=== PATIENT | female | born 1940 | race Caucasian/White ===

== ENCOUNTER 2016-10-30 15:52 | Emergency (ER) | payer OTHER ==
[~2016-10-30] VITALS: Ht 149.9 cm; Wt 69.0 kg
[~2016-10-30 15:52] MED LIST: MECL25 PO; METH750T2 PO; TYLE3 PO
[2016-10-30 15:57] VITALS: BP 173/74; PULSE 92; RESP 18; TEMP 98.1; O2SAT 97
[2016-10-30 16:19] LABS: GLUCOSE,URINE NEG (NEG); KETONE, URINE NEG (NEG); NITRITE,URINE NEG (NEG); PH, URINE 5.5 (5.0-8.5)
[2016-10-30] MEDS ORDERED: SODIUM CHLOR 0.9% 1000 ML INJ 1,000 ML IV ONE (16:30)
[2016-10-30] MEDS ORDERED: ACETAMINOPHEN 325 MG TAB PO ONE (16:30)
--- NOTE | 2016-10-30 16:35 | PD ---
HPI Chief Complaint: Complaint Time Seen by Provider: 16:17 Travel History International Travel<30 days: No Contact w/Intl Traveler<30days: No Traveled to known affect area: No History of Present Illness HPI Patient is a 76-year-old female who comes in complaining of possible urinary tract infection. She says that 2 weeks ago she was diagnosed with a UTI and was treated with doxycycline. She says she did feel better, and the past few days started noticing some burning in her urination again. She says she went to see her doctor today because she felt like she is unable to urinate and had some back pain. Her doctor called in a prescription for azithromycin for her, and told her to have an ultrasound done. She was also told if she was not feeling well, she should come to the emergency department. She says she cares for her daughter who is terminal, and she has just been feeling really weak and lying she is unable to care for her tonight. She says she has been feeling chills and pain in her abdomen. She has not started the azithromycin yet. 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) Gastrointestinal Disorders: Yes Genitourinary: Yes Musculoskeletal: Yes Neurologic: No Reproductive: No Respiratory: No Past Surgical History Abdominal Surgery: Yes (GALL BLADDER REMOVED) Cholecystectomy: Yes Gynecologic Surgery: Yes (HISTERECTOMY) Hysterectomy: Yes Tonsillectomy: Yes Other Surgery: Yes Social History Alcohol Use: No Tobacco Use: No Substance Use: No Allergies-Medications (Allergen,Severity, Reaction): Coded Allergies: ibuprofen (Unverified Allergy, Severe, CHEST HEAVINESS, 10/30/16) Reported Meds & Prescriptions Reported Meds & Active Scripts Active No Active Prescriptions or Reported Medications Review of Systems Except as stated in HPI: all other systems reviewed are Neg General / Constitutional: Positive: Chills, No: Fever HENT: No: Headaches, Lightheadedness Cardiovascular: No: Chest Pain or Discomfort Respiratory: No: Cough, Shortness of Breath Gastrointestinal: Positive: Nausea, Abdominal Pain, No: Vomiting Genitourinary: Positive: Dysuria, Flank Pain Musculoskeletal: No: Edema, Pain Skin: No Rash, No Change in Pigmentation Neurologic: Positive: Weakness, No: Dizziness, Syncope Physical Exam Narrative GENERAL: Awake and alert, in no acute distress. SKIN: Focused skin assessment warm/dry. HEAD: Atraumatic. Normocephalic. EYES: Pupils equal and round. No scleral icterus. ENT: Mucous membranes pink and moist. NECK: Trachea midline. No JVD. CARDIOVASCULAR: Regular rate and rhythm. No murmur appreciated. RESPIRATORY: No accessory muscle use. Clear to auscultation. Breath sounds equal bilaterally. GASTROINTESTINAL: Abdomen soft, nondistended. Tender to palpation of the lower abdomen. No rebound or guarding. MUSCULOSKELETAL: No obvious deformities. No clubbing. No cyanosis. No edema. Tender to palpation across the lower back. No spinal tenderness. NEUROLOGICAL: Awake and alert. No obvious cranial nerve deficits. Motor grossly within normal limits. Normal speech. PSYCHIATRIC: Appropriate mood and affect; insight and judgment normal. Data Data Last Documented VS Vital Signs Date Time Temp Pulse Resp B/P (MAP) Pulse Ox O2 Delivery O2 Flow Rate FiO2 10/30/16 18:24 98.0 10/30/16 15:57 92 18 97 Room Air Orders Orders Urinalysis - C+S If Indicated (10/30/16 15:59) Iv Access Insert/Monitor (10/30/16 16:27) Complete Blood Count With Diff (10/30/16 16:27) Comprehensive Metabolic Panel (10/30/16 16:27) Sodium Chlor 0.9% 1000 Ml Inj (Ns 1000 M (10/30/16 16:30) Acetaminophen (Tylenol) (10/30/16 16:30) Ct Abd/Pel W Iv Contrast(Rout) (10/30/16 ) Ondansetron Inj (Zofran Inj) (10/30/16 16:45) Iohexol 350 Inj (Omnipaque 350 Inj) (10/30/16 17:34) Influenzae A/B Antigen (10/30/16 18:18) Labs Laboratory Tests Test 10/30/16 16:05 10/30/16 16:43 Urine Collection Type CLEAN CATCH Urine Color STRAW Urine Turbidity CLEAR Urine pH 5.5 Urine Specific [place] 1.003 Urine Protein NEG mg/dL Urine Glucose (UA) NEG mg/dL Urine Ketones NEG mg/dL Urine Occult Blood TRACE Urine Nitrite NEG Urine Bilirubin NEG Urine Leukocyte Esterase NEG Urine RBC 0-3 /hpf Urine Squamous Epithelial Cells 0-5 /hpf Microscopic Urinalysis Comment CULT NOT INDICATED Urine Collection Time 16:05 White Blood Count 7.9 TH/MM3 Red Blood Count 4.95 MIL/MM3 Hemoglobin 12.5 GM/DL Hematocrit 38.1 % Mean Corpuscular Volume 77.0 FL Mean Corpuscular Hemoglobin 25.3 PG Mean Corpuscular Hemoglobin Concent 32.9 % Red Cell Distribution Width 14.0 % Platelet Count 233 TH/MM3 Mean Platelet Volume 8.5 FL Neutrophils (%) (Auto) 60.6 % Lymphocytes (%) (Auto) 30.5 % Monocytes (%) (Auto) 7.4 % Eosinophils (%) (Auto) 1.2 % Basophils (%) (Auto) 0.3 % Neutrophils # (Auto) 4.8 TH/MM3 Lymphocytes # (Auto) 2.4 TH/MM3 Monocytes # (Auto) 0.6 TH/MM3 Eosinophils # (Auto) 0.1 TH/MM3 Basophils # (Auto) 0.0 TH/MM3 CBC Comment DIFF FINAL Differential Comment Blood Urea Nitrogen 12 MG/DL Creatinine 1.00 MG/DL Random Glucose 119 MG/DL Total Protein 6.8 GM/DL Albumin 3.4 GM/DL Calcium Level 8.9 MG/DL Alkaline Phosphatase 75 U/L Aspartate Amino Transf (AST/SGOT) 15 U/L Alanine Aminotransferase (ALT/SGPT) 26 U/L Total Bilirubin 0.4 MG/DL Sodium Level 141 MEQ/L Potassium Level 3.6 MEQ/L Chloride Level 104 MEQ/L Carbon Dioxide Level 29.6 MEQ/L Anion Gap 7 MEQ/L Estimat Glomerular Filtration Rate 54 ML/MIN MDM Medical Decision Making Medical Screen Exam Complete: Yes Emergency Medical Condition: Yes Medical Record Reviewed: Yes Differential Diagnosis Urinary tract infection versus electrolyte abnormality versus dehydration versus renal stone versus pyelonephritis Narrative Course Patient is a 76-year-old female comes in complaining of chills and weakness. Exam shows tenderness across the lower abdomen. IV established, labs sent. Labs show no acute abnormalities. White blood cell count is within normal limits, creatinine is 1. Urinalysis is negative for UTI. CT abdomen and pelvis shows no acute abnormalities. Influenza test is negative. Patient given IV fluids and Tylenol and she reports feeling better. Patient admits she has run down from having to take care of her daughter. She says she is not eating or drinking very much. She is advised that she needs to take care of herself to be of any use to her daughter. Advised to increase her fluid intake. Advised follow-up with her doctor. Advised to return to the ED as needed for any worsening symptoms. Patient and her family are comfortable with discharge at this time. Diagnosis Primary Impression: Weakness Patient Instructions: General Instructions, Weakness (ED) Additional Instructions: Increase her fluid intake. Follow-up with a primary care doctor. Return to the emergency department as needed for any worsening symptoms. Scripts No Active Prescriptions or Reported Meds Disposition: 01 DISCHARGE HOME Condition: Stable Faith Argueta MD Oct 30, 2016 16:35
[2016-10-30] MEDS ORDERED: ONDANSETRON HCL 4 MG/2 ML VIAL IV PUSH ONE (16:45)
[2016-10-30 16:49] LABS: AUTOMATED NEUTROPHIL # 4.8 TH/MM3 (1.8-7.7); BASOPHIL % 0.3 % (0.0-2.0); EOSINOPHIL # 0.1 TH/MM3 (0-0.4); EOSINOPHIL % 1.2 % (0.0-4.0); HEMATOCRIT 38.1 % (35.0-46.0); LYMPH % 30.5 % (9.0-44.0); LYMPHOCYTE # 2.4 TH/MM3 (1.0-4.8); MEAN CORPUSCULAR HEMOGLOBIN 25.3 PG (27.0-34.0); MEAN CORPUSCULAR HGB CONC 32.9 % (32.0-36.0); MONO % 7.4 % (0.0-8.0); NEUT % 60.6 % (16.0-70.0); PLATELET COUNT 233 TH/MM3 (150-450); RED BLOOD COUNT 4.95 MIL/MM3 (4.00-5.30); WHITE BLOOD COUNT 7.9 TH/MM3 (4.0-11.0)
[2016-10-30 17:01] LABS: CHLORIDE 104 MEQ/L (98-107); POTASSIUM 3.6 MEQ/L (3.5-5.1); SODIUM (NA) 141 MEQ/L (136-145)
[2016-10-30 17:02] LABS: HEMO FLAGS DIFF FINAL
[2016-10-30 17:05] LABS: ANION GAP 7 MEQ/L (5-15); BICARBONATE 29.6 MEQ/L (21.0-32.0); BLOOD UREA NITROGEN 12 MG/DL (7-18)
[2016-10-30 17:08] LABS: ALT (GPT) 26 U/L (10-53); AST (GOT) 15 U/L (15-37); GLOMERULAR FILTRATION RATE 54 ML/MIN (>89)
[2016-10-30 17:10] LABS: TOTAL BILIRUBIN ADULT 0.4 MG/DL (0.2-1.0)
[2016-10-30 17:11] LABS: ALKALINE PHOSPHATASE 75 U/L (45-117)
[2016-10-30 17:21] LABS: BLOOD, URINE TRACE (NEG); COMMENT (UR) CULT NOT INDICATED; CULTURE IF INDICATED CULT NOT INDICATED; METHOD OF COLLECTION CLEAN CATCH; RBC, URINE 0-3 /hpf (0-3); SQUAMOUS EPITHELIAL CELL URINE 0-5 /hpf (0-5); URINE COLOR STRAW (YELLW/STRAW)
[2016-10-30] MEDS ORDERED: IOHEXOL 350 MG/ML 10 ML VIAL (for RAD DIAG) IVCONTRAST ONE (17:34)
--- NOTE | 2016-10-30 18:07 | RADRPT ---
EXAM DATE/TIME: 10/30/2016 17:22 [facility] COMPARISON: No previous studies available for comparison. INDICATIONS : Flank abdominal pain. IV CONTRAST: 80 cc Omnipaque 350 (iohexol) IV ORAL CONTRAST: No oral contrast ingested. RADIATION DOSE: 14.67 CTDIvol (mGy) MEDICAL HISTORY : Cardiovascular disease. SURGICAL HISTORY : Hysterectomy. Cholecystectomy. ENCOUNTER: Initial ACUITY: 1 day PAIN SCALE: 5/10 LOCATION: flank abdomen TECHNIQUE: Volumetric scanning of the abdomen and pelvis was performed. Using automated exposure control and ad justment of the mA and/or kV according to patient size, radiation dose was kept as low as reasonably achievable to obtain optimal diagnostic quality images. DICOM format image data is available electro nically for review and comparison. FINDINGS: LOWER LUNGS: The visualized lower lungs are clear. LIVER: There is an 11 mm cyst within the right lobe of liver. There is no dilation of the biliary tree. Sta tus post cholecystectomy. No calcified gallstones. SPLEEN: Normal size without lesion. PANCREAS: Within normal limits. KIDNEYS: Normal in size and shape. There is no mass, stone or hydronephrosis. ADRENAL GLANDS: Within normal limits. VASCULAR: There is no aortic aneurysm. BOWEL/MESENTERY: The stomach, small bowel, and colon demonstrate no acute abnormality. There is no free intraperitone al air or fluid. ABDOMINAL WALL: Within normal limits. RETROPERITONEUM: There is no lymphadenopathy. BLADDER: No wall thickening or mass. REPRODUCTIVE: Within normal limits. INGUINAL: There is no lymphadenopathy or hernia. MUSCULOSKELETAL: Degenerative changes and scoliosis of the thoracolumbar spine are noted. Degenerative changes are osm olar involving the hips bilaterally. CONCLUSION: 1. No acute obstructive uropathy. 2. 11 mm right hepatic lobe cyst. 3. Degenerative changes and scoliosis of the thoraco-lumbar spine. 4. Degenerative changes involving hip joints bilaterally. Stephen Salas MD on October 30, 2016 at 18:01 Board Certified Radiologist. This report was verified electronically.
[2016-10-30 18:24] VITALS: TEMP 98
[2016-10-30 19:04] VITALS: BP 185/80; PULSE 96; RESP 16; O2SAT 98
== END 2016-10-30 19:22 | disposition home or self-care (01) ==
LOC: PHED 15:52
DX: R53.1 Weakness (principal)
CPT/HCPCS: 74177; 80053; 81001; 85025; 87804; 96360; 96361; 99285; J7030; Q9967

== ENCOUNTER 2016-11-05 11:40 | Observation (INO) | payer OTHER ==
[~2016-11-05] VITALS: Ht 165.1 cm; Wt 80.0 kg
[2016-11-05] VITALS (7 sets, daily range): BP systolic 139–190; BP diastolic 74–89; PULSE 58–74; RESP 16–22; TEMP 97.7–97.9; O2SAT 97–99
[2016-11-05] MEDS ORDERED: TIMO0.5S30 EACH EYE (11:53)
[2016-11-05] MEDS ORDERED: ZOFR4TAB PO (11:53)
[2016-11-05] MEDS ORDERED: CIPR-9 PO (11:53)
[2016-11-05] MEDS: NITROGLYCERIN 0.4 MG SL 25 TABS/BTL SL SCH ×3 (12:11→12:25)
[2016-11-05] MEDS ORDERED: SODIUM CHLORIDE 0.9% FLUSH 10 ML FLUSH IVF PRN (12:15)
[2016-11-05] MEDS ORDERED: ONDANSETRON HCL 4 MG/2 ML VIAL IV PUSH ONE (12:15)
[2016-11-05] MEDS ORDERED: MORPHINE SULFATE 4 MG/ML INJ IV PUSH ONE (12:15)
--- NOTE | 2016-11-05 12:49 | PD ---
HPI Chief Complaint: Chest Pain Time Seen by Provider: 12:01 Travel History International Travel<30 days: No Contact w/Intl Traveler<30days: No Traveled to known affect area: No History of Present Illness HPI 76 yo F c/o L CP for approx 1-2 days, onset at rest, +radiation to L arm, + dyspnea, no cough/fever. severity 5-6/10, better with nitro. no pleuritic CP. no n/v/diaphoresis. + family hx CAD. no personal hx CAD. + personal stress related to care of daughter lately. + Palpitations for past 1-2 days. 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) Gastrointestinal Disorders: Yes Genitourinary: Yes Hypertension: Yes Musculoskeletal: Yes Neurologic: No Reproductive: No Respiratory: No Past Surgical History Abdominal Surgery: Yes (GALL BLADDER REMOVED) Cholecystectomy: Yes Gynecologic Surgery: Yes (HYSTERECTOMY) Hysterectomy: Yes Tonsillectomy: Yes Other Surgery: Yes Social History Alcohol Use: No Tobacco Use: No Substance Use: No Allergies-Medications (Allergen,Severity, Reaction): Coded Allergies: ibuprofen (Unverified Allergy, Severe, CHEST HEAVINESS, 11/05/16) Reported Meds & Prescriptions Reported Meds & Active Scripts Active Reported Timolol Opth Drops 0.5 % Soln 1 Drop EACH EYE BID Review of Systems Except as stated in HPI: all other systems reviewed are Neg General / Constitutional: No: Fever Respiratory: Positive: Cough Physical Exam Narrative GENERAL: 76 yo F, WNWD, mild distress 2/2 pain/dyspnea SKIN: Warm and dry. HEAD: Atraumatic. Normocephalic. EYES: Pupils equal and round. No scleral icterus. No injection or drainage. ENT: No nasal bleeding or discharge. Mucous membranes pink and moist. NECK: Trachea midline. No JVD. CARDIOVASCULAR: Regular rate and rhythm. RESPIRATORY: Lungs clear. No tachypnea. No dyspnea. GASTROINTESTINAL: Abdomen soft, non-tender, nondistended. Hepatic and splenic margins not palpable. MUSCULOSKELETAL: Extremities without clubbing, cyanosis, or edema. No obvious deformities. NEUROLOGICAL: Awake and alert. No obvious cranial nerve deficits. Motor grossly within normal limits. Five out of 5 muscle strength in the arms and legs. Normal speech. PSYCHIATRIC: Appropriate mood and affect; insight and judgment normal. Data Data Last Documented VS Vital Signs Date Time Temp Pulse Resp B/P (MAP) Pulse Ox O2 Delivery O2 Flow Rate FiO2 11/05/16 12:04 18 99 Nasal Cannula 2.00 11/05/16 11:53 97.8 74 139/89 (106) VS reviewed Orders Orders Electrocardiogram (11/05/16 12:01) Basic Metabolic Panel (Bmp) (11/05/16 12:01) Ckmb (Isoenzyme) Profile (11/05/16 12:01) Complete Blood Count With Diff (11/05/16 12:01) Magnesium (Mg) (11/05/16 12:01) Prothrombin Time / Inr (Pt) (11/05/16 12:01) Act Partial Throm Time (Ptt) (11/05/16 12:01) Troponin I (11/05/16 12:01) Chest, Single Ap (11/05/16 12:01) Ecg Monitoring (11/05/16 12:01) Bilateral Bp Monitoring (11/05/16 12:01) Iv Access Insert/Monitor (11/05/16 12:01) Oximetry (11/05/16 12:01) Oxygen Administration (11/05/16 12:01) Morphine Inj (Morphine Inj) (11/05/16 12:15) Sodium Chloride 0.9% Flush (Ns Flush) (11/05/16 12:15) Nitroglycerin Sl (Nitrostat Sl) (11/05/16 12:15) Ondansetron Inj (Zofran Inj) (11/05/16 12:15) Place In Observation (11/05/16 13:35) Activity Bed Rest With Brp (11/05/16 13:35) Vital Signs (Adult) Q4H (11/05/16 13:35) Cardiac Rhythm .As Directed (11/05/16 13:35) Notify Dr: Other .PRN (11/05/16 13:35) Notify Parameters (11/05/16 13:35) Resp Oxygen Nasal Cannula (11/05/16 ) Ckmb (Isoenzyme) Profile (11/05/16 13:35) Ckmb (Isoenzyme) Profile (11/05/16 16:35) Troponin I (11/05/16 13:35) Troponin I (11/05/16 16:35) Electrocardiogram (11/05/16 16:35) ^ Obtain (11/05/16 13:35) Sodium Chloride 0.9% Flush (Ns Flush) (11/05/16 13:45) Sodium Chloride 0.9% Flush (Ns Flush) (11/05/16 21:00) Workers' Compensation Claims Supervisor / Telemetry [id number] (11/05/16 13:35) Admit Order (Ed Use Only) (11/05/16 13:36) Labs Laboratory Tests Test 11/05/16 12:15 White Blood Count 7.0 TH/MM3 Red Blood Count 4.99 MIL/MM3 Hemoglobin 12.9 GM/DL Hematocrit 39.0 % Mean Corpuscular Volume 78.1 FL Mean Corpuscular Hemoglobin 25.9 PG Mean Corpuscular Hemoglobin Concent 33.2 % Red Cell Distribution Width 14.9 % Platelet Count 298 TH/MM3 Mean Platelet Volume 9.3 FL Neutrophils (%) (Auto) 60.3 % Lymphocytes (%) (Auto) 32.0 % Monocytes (%) (Auto) 6.1 % Eosinophils (%) (Auto) 1.0 % Basophils (%) (Auto) 0.6 % Neutrophils # (Auto) 4.2 TH/MM3 Lymphocytes # (Auto) 2.2 TH/MM3 Monocytes # (Auto) 0.4 TH/MM3 Eosinophils # (Auto) 0.1 TH/MM3 Basophils # (Auto) 0.0 TH/MM3 CBC Comment DIFF FINAL Differential Comment Prothrombin Time 10.2 SEC Prothromb Time International Ratio 0.9 RATIO Activated Partial Thromboplast Time 24.8 SEC Blood Urea Nitrogen 10 MG/DL Creatinine 0.85 MG/DL Random Glucose 96 MG/DL Calcium Level 8.6 MG/DL Magnesium Level 2.5 MG/DL Sodium Level 141 MEQ/L Potassium Level 3.9 MEQ/L Chloride Level 110 MEQ/L Carbon Dioxide Level 24.6 MEQ/L Anion Gap 6 MEQ/L Estimat Glomerular Filtration Rate 65 ML/MIN Total Creatine Kinase 82 U/L Troponin I LESS THAN 0.02 NG/ML MDM Medical Decision Making Medical Screen Exam Complete: Yes Emergency Medical Condition: Yes Medical Record Reviewed: Yes Differential Diagnosis NSTEMI, unstable angina, coronary vasospasm, PE, PTX, aortic dissection, pericarditis, myocarditis, endocarditis, PNA, esophageal disease, aneurysm, musculoskeletal etiologies, anxiety, cocaine/sympathomimetic abuse Narrative Course EKG shows sinus rhythm with a rate of 66 normal axis intervals no ischemic injury pattern CBC & BMP Diagram 11/05/16 12:15 Calcium Level 8.6, Magnesium Level 2.5 Tn < 0.2 DIRECTOR PHYSICAL THERAPY evaluation considered next most reasonable step, pt agreeable with plan Diagnosis Primary Impression: Chest pain Admitting Information Admitting Physician Requests: Observation Ezio Rosas MD Nov 05, 2016 12:49
[2016-11-05 12:50] LABS: AUTOMATED NEUTROPHIL # 4.2 TH/MM3 (1.8-7.7); BASOPHIL % 0.6 % (0.0-2.0); EOSINOPHIL # 0.1 TH/MM3 (0-0.4); HEMO FLAGS DIFF FINAL; LYMPHOCYTE # 2.2 TH/MM3 (1.0-4.8); MEAN CELL VOLUME 78.1 FL (80.0-100.0); MEAN CORPUSCULAR HEMOGLOBIN 25.9 PG (27.0-34.0); MEAN CORPUSCULAR HGB CONC 33.2 % (32.0-36.0); MONO % 6.1 % (0.0-8.0); NEUT % 60.3 % (16.0-70.0); PLATELET COUNT 298 TH/MM3 (150-450); RED BLOOD COUNT 4.99 MIL/MM3 (4.00-5.30); RED CELL DISTRIBUTION WIDTH 14.9 % (11.6-17.2)
[2016-11-05 12:52] LABS: APTT (PATIENT) 24.8 SEC (24.3-30.1); INTERNATIONAL NORMALIZED RATIO 0.9 RATIO; PROTHROMBIN TIME - PATIENT 10.2 SEC (9.8-11.6)
--- NOTE | 2016-11-05 13:05 | RADRPT ---
EXAM DATE/TIME: 11/05/2016 12:58 [facility] COMPARISON: No previous studies available for comparison. INDICATIONS : Chest pain. Patient also complains of left arm pain. MEDICAL HISTORY : None. SURGICAL HISTORY : None. ENCOUNTER: Initial ACUITY: 2 days PAIN SCORE: 3/10 LOCATION: Bilateral chest and left arm. FINDINGS: A single view of the chest demonstrates the lungs to be symmetrically aerated without evidence of mas s, infiltrate or effusion. The cardiomediastinal contours are unremarkable. Osseous structures are intact. CONCLUSION: No acute disease. Pato Babin MD on November 05, 2016 at 13:03 Board Certified Radiologist. This report was verified electronically.
[2016-11-05 13:28] LABS: ANION GAP 6 MEQ/L (5-15); BICARBONATE 24.6 MEQ/L (21.0-32.0); BLOOD UREA NITROGEN 10 MG/DL (7-18); CHLORIDE 110 MEQ/L (98-107); CREATINE KINASE 82 U/L (26-192); GLOMERULAR FILTRATION RATE 65 ML/MIN (>89); MAGNESIUM 2.5 MG/DL (1.5-2.5); POTASSIUM 3.9 MEQ/L (3.5-5.1); SODIUM (NA) 141 MEQ/L (136-145)
[2016-11-05] MEDS ORDERED: SODIUM CHLORIDE 0.9% FLUSH 10 ML FLUSH IV FLUSH PRN (13:45)
[2016-11-05] MEDS ORDERED: cloNIDine HCL 0.1 MG TAB PO PRN (14:45)
[2016-11-05] MEDS ORDERED: RESP: ALBUTEROL 2.5 MG/IPRATROPIUM 0.5 MG NEB (PRN) INH (14:45)
[2016-11-05] MEDS ORDERED: ACETAMINOPHEN/HYDROcodone 325 MG/7.5 MG TAB PO PRN (14:45)
[2016-11-05] MEDS ORDERED: ACETAMINOPHEN 500 MG CPLT PO PRN (14:45)
[2016-11-05] MEDS ORDERED: SODIUM CHLORIDE 0.9% FLUSH 5 ML FLUSH IVF PRN (14:45)
[2016-11-05] MEDS ORDERED: ONDANSETRON HCL 4 MG/2 ML VIAL IV PRN (14:45)
[2016-11-05] MEDS ORDERED: ALPRAZolam 0.25 MG TAB PO PRN (14:45)
--- NOTE | 2016-11-05 15:13 | HHI.HP ---
HPI Primary Care Physician Hira Justin MD Chief Complaint CHEST PAIN History of Present Illness This is a 76-year-old female that presents to ED via [facility] from her PCP office to evaluate chest discomfort. Patient states that all last night she had the sensation of heart palpitations. She describes it as a flipping sensation but does not recall feeling his heart was racing. Then this morning while she is driving to her PCPs office her left arm began to ache. Soon later she developed a pressure in the center of her chest that rate up into her neck. That discomfort will last 2-3 minutes but continue to recur on the way to her PCP office. She became short of breath at the PCP office and EVAC was called. The discomfort is no longer present. She did feel little nauseous but no emesis. No diaphoresis. States she has been under a lot of stress. She is caring for her daughter who she states is in hospice care. Denies history of CAD. States she has not had a stress test in 30 years. Review of Systems General: Patient denies fevers, chills recent, and recent travel HEENT: Patient denies headache, sore throat, difficulty swallowing. Cardiovascular: Has the chest discomfort as mentioned above. Complains of palpitations. Denies sensation of heart beating rapidly. No syncope. Denies diaphoresis. Respiratory: She was short of breath. Denies inspirational chest discomfort. Denies coughing wheezing or hemoptysis. GI: She was nauseous but denies emesis. Patient denies diarrhea, abdominal pain , bloody stools. Musculoskeletal: Patient denies joint pain or edema. Denies calf pain or edema. Neurovascular: Patient denies numbness, tingling, weakness in extremities. Denies headache. Endocrine: Denies polyuria and polydipsia. Hematologic: Denies easy bruising. Skin: Denies rash or itching. Past Family Social History Allergies: Coded Allergies: ibuprofen (Unverified Allergy, Severe, CHEST HEAVINESS, 11/05/16) Past Medical History Hyperlipidemia but states she has not taken medication in years. Denies diabetes, CAD, and hypertension. Past Surgical History Cholecystectomy, hysterectomy, and tonsillectomy. Reported Medications Reported Meds & Active Scripts Active Reported Timolol Opth Drops 0.5 % Soln 1 Drop EACH EYE BID Active Ordered Medications Current Medications Medications (Trade) Dose Ordered Sig/Dm Route Start Time Stop Time Status Last Admin (NS Flush) 2 ml UNSCH PRN IVF 11/05/16 12:15 11/05/16 12:12 (NS Flush) 2 ml UNSCH PRN IV FLUSH 11/05/16 13:45 (NS Flush) 2 ml BID IV FLUSH 11/05/16 21:00 (NS Flush) 2 ml UNSCH PRN IVF 11/05/16 14:45 UNV (NS Flush) 2 ml BID IVF 11/05/16 21:00 UNV (Tylenol) 500 mg Q4H PRN PO 11/05/16 14:45 UNV (Vicco 7.5-325 Mg) 1 tab Q4H PRN PO 11/05/16 14:45 UNV (Zofran Inj) 4 mg Q6H PRN IV 11/05/16 14:45 UNV (Protonix) 40 mg DAILY PO 11/06/16 09:00 UNV (Aspirin) 325 mg DAILY PO 11/06/16 09:00 UNV (Xanax) 0.25 mg Q8H PRN PO 11/05/16 14:45 UNV Family History States that her father had an NH in his 50s and lived to be 73. States that his sister had an NH in her late 50s. Social History Lifetime nonsmoker. Denies alcohol or illicit drugs. Lives with her . Physical Exam Vital Signs Vital Signs Date Time Temp Pulse Resp B/P (MAP) Pulse Ox O2 Delivery O2 Flow Rate FiO2 11/05/16 13:55 58 17 163/74 (103) 99 Nasal Cannula 2.00 11/05/16 12:04 18 99 Nasal Cannula 2.00 11/05/16 12:04 99 Nasal Cannula 2.00 11/05/16 11:53 97.8 74 22 139/89 (106) 99 Physical Exam GENERAL: This is a well-nourished, well-developed patient, in no apparent distress. Patient speaks in clear complete sentences. Patient is pleasant. Her granddaughter is at the bedside. HEENT: Head is atraumatic and normocephalic. Neck is supple without lymphadenopathy and trachea is midline. No JVD or carotid bruits. CARDIOVASCULAR: Regular rate and rhythm without murmurs, gallops, or rubs. RESPIRATORY: Clear to auscultation. Breath sounds equal bilaterally. No wheezes , rales, or rhonchi. Chest wall is tender but not the discomfort she was having. No use of accessory muscles. GASTROINTESTINAL: Abdomen is nontender, nondistended. Abdomen soft. No obvious pulsatile mass or bruit. No CVA tenderness. Strong femoral pulses bilaterally. Normal bowel sounds in all quadrants. MUSCULOSKELETAL: Patient is moving upper and lower extremities freely. No calf tenderness or edema, no Homans sign. Strong pulses in upper and lower extremities. NEUROLOGICAL: Patient is alert and oriented. Cranial nerves 2-12 are grossly intact. No focal deficits and speech is clear. SKIN: No rash and turgor is normal. Laboratory Laboratory Tests Test 11/05/16 12:15 White Blood Count 7.0 Red Blood Count 4.99 Hemoglobin 12.9 Hematocrit 39.0 Mean Corpuscular Volume 78.1 Mean Corpuscular Hemoglobin 25.9 Mean Corpuscular Hemoglobin Concent 33.2 Red Cell Distribution Width 14.9 Platelet Count 298 Mean Platelet Volume 9.3 Neutrophils (%) (Auto) 60.3 Lymphocytes (%) (Auto) 32.0 Monocytes (%) (Auto) 6.1 Eosinophils (%) (Auto) 1.0 Basophils (%) (Auto) 0.6 Neutrophils # (Auto) 4.2 Lymphocytes # (Auto) 2.2 Monocytes # (Auto) 0.4 Eosinophils # (Auto) 0.1 Basophils # (Auto) 0.0 CBC Comment DIFF FINAL Differential Comment Prothrombin Time 10.2 Prothromb Time International Ratio 0.9 Activated Partial Thromboplast Time 24.8 Blood Urea Nitrogen 10 Creatinine 0.85 Random Glucose 96 Calcium Level 8.6 Magnesium Level 2.5 Sodium Level 141 Potassium Level 3.9 Chloride Level 110 Carbon Dioxide Level 24.6 Anion Gap 6 Estimat Glomerular Filtration Rate 65 Total Creatine Kinase 82 Troponin I LESS THAN 0.02 Result Diagram: 11/05/16 1215 11/05/16 1215 Imaging Last 48 hours Impressions Chest X-Ray 11/05/16 1201 Signed Impressions: Service Date/Time: Saturday, November 05, 2016 12:58 - CONCLUSION: No acute disease. Pato Babin MD Course Initial EKG is sinus rhythm without significant ST segment depressions or elevations. Caprini VTE Risk Assessment Caprini VTE Risk Assessment: Mod/High Risk (score >= 2) Caprini Risk Assessment Model Point Value = 1 Point Value = 2 Point Value = 3 Point Value = 5 Age 41-60 Minor surgery BMI > 25 kg/m2 Swollen legs Varicose veins or History of unexplained or recurrent spontaneous Oral contraceptives or hormone replacement Sepsis (< 1 month) Serious lung disease, including pneumonia (< 1 month) Abnormal pulmonary function Acute myocardial infarction Congestive heart failure (< 1 month) History of inflammatory bowel disease Medical patient at bed rest Age 61-74 Arthroscopic surgery Major open surgery (> 45 min) Laparoscopic surgery (> 45 min) Malignancy Confined to bed (> 72 hours) Immobilizing plaster cast Central venous access Age >= 75 History of VTE Family history of VTE Factor V Leiden Prothrombin [id number] Lupus anticoagulant Anticardiolipin antibodies Elevated serum homocysteine Heparin-induced thrombocytopenia Other congenital or acquired thrombophilia Stroke (< 1 month) Elective arthroplasty Hip, pelvis, or leg fracture Acute spinal cord injury (< 1 month) Prophylaxis Regimen Total Risk Factor Score Risk Level Prophylaxis Regimen 0-1 Low Early ambulation 2 Moderate Order ONE of the following: *Sequential Compression Device (SCD) *Heparin 5000 units SQ BID 3-4 Higher Order ONE of the following medications: *Heparin 5000 units SQ TID *Enoxaparin/Lovenox 40 mg SQ daily (WT < 150 kg, CrCl > 30 mL/min) *Enoxaparin/Lovenox 30 mg SQ daily (WT < 150 kg, CrCl > 10-29 mL/min) *Enoxaparin/Lovenox 30 mg SQ BID (WT < 150 kg, CrCl > 30 mL/min) AND/OR *Sequential Compression Device (SCD) 5 or more Highest Order ONE of the following medications: *Heparin 5000 units SQ TID (Preferred with Epidurals) *Enoxaparin/Lovenox 40 mg SQ daily (WT < 150 kg, CrCl > 30 mL/min) *Enoxaparin/Lovenox 30 mg SQ daily (WT < 150 kg, CrCl > 10-29 mL/min) *Enoxaparin/Lovenox 30 mg SQ BID (WT < 150 kg, CrCl > 30 mL/min) AND *Sequential Compression Device (SCD) Assessment and Plan Assessment and Plan * Chest pain: Patient will continue to have serial cardiac enzymes and EKGs for ruling out purposes. She will be seen by Dr. Pulido of cardiology in the chest pain center. She likely will proceed with a chemical stress test in the morning if she rules out. If nonischemic she'll be discharged with instructions to follow-up with PCP. * Hyperlipidemia: Patient states that she has not taken medications for years. She needs discuss this with her PCP. Patient is stable at this time. She is agreeable to this plan. Charlie Avery Nov 05, 2016 15:13
[2016-11-05 16:40] LABS: CREATINE KINASE 53 U/L (26-192)
[2016-11-05 18:56] LABS: CREATINE KINASE 84 U/L (26-192)
[2016-11-05] MEDS: SODIUM CHLORIDE 0.9% FLUSH 5 ML FLUSH IVF SCH (20:12)
[2016-11-05] MEDS ORDERED: SODIUM CHLORIDE 0.9% FLUSH 10 ML FLUSH IV FLUSH SCH (21:00)
[2016-11-06] VITALS: PULSE 61
[2016-11-06 00:09] VITALS: BP 129/60; PULSE 61; RESP 18; TEMP 98.4; O2SAT 97
[2016-11-06 03:35] VITALS: BP 134/66; PULSE 63; RESP 18; TEMP 98.3; O2SAT 96
[2016-11-06 04:05] VITALS: PULSE 56
[2016-11-06 07:25] VITALS: BP 161/74; PULSE 68; RESP 18; TEMP 97.4; O2SAT 98
[2016-11-06 07:30] VITALS: O2SAT 99
[2016-11-06] MEDS ORDERED: PANTOPRAZOLE SOD 40 MG DELAYED RELEASE TAB PO SCH (09:00)
[2016-11-06] MEDS: SODIUM CHLORIDE 0.9% FLUSH 5 ML FLUSH IVF SCH (09:00)
[2016-11-06] MEDS ORDERED: ASPIRIN 325 MG TAB PO SCH (09:00)
--- NOTE | 2016-11-06 09:10 | EKG ---
Date Performed: 11/05/2016 Time Performed: 18:29:54 PTAGE: 76 years EKG: SINUS BRADYCARDIA POSSIBLE LEFT ATRIAL ENLARGEMENT BORDERLINE ECG PREVIOUS TRACING : 11/05/2016 11.52 Since previous tracing, no significant change noted DOCTOR: Srinivas Shea Interpretating Date/Time 11/06/2016 09:10:22
--- NOTE | 2016-11-06 09:13 | EKG ---
Date Performed: 11/05/2016 Time Performed: 11:52:43 PTAGE: 76 years EKG: Sinus rhythm POSSIBLE LEFT ATRIAL ENLARGEMENT BORDERLINE ECG PREVIOUS TRACING : 12/18/2012 08.27 Since previous tracing, no significant change noted DOCTOR: Srinivas Shea Interpretating Date/Time 11/06/2016 09:11:01
[2016-11-06] MEDS ORDERED: REGADENOSON INJ 0.4 MG/5 ML SYR ONE (09:42)
--- NOTE | 2016-11-06 10:33 | RADRPT ---
EXAM DATE/TIME: 11/06/2016 08:59 [facility] COMPARISON: No previous studies available for comparison. INDICATIONS : Left chest pain with radiation to left arm with dyspnea. Angina. DOSE: 25.3 mCi Tc99m Myoview at stress. 8.4 mCi Tc99m Myoview at rest. 0.4 mg Lexiscan STRESS SYMPTOMS: Headache, shortness of breath, nausea and vomiting. EJECTION FRACTION: > 70% MEDICAL HISTORY : Hypercholesterolemia. Hypertension. SURGICAL HISTORY : Hysterectomy. Tonsillectomy. Cholecystectomy. ENCOUNTER: Initial ACUITY: 2 days PAIN SCALE: 6/10 LOCATION: Left chest TECHNIQUE: The patient underwent pharmacologic stress with infusion of prescribed dose. Continuous ECG tracing was monitored during stress. Gated SPECT imaging was performed after stress and conventional SPECT i maging was performed at rest. The examination was performed on a SPECT/CT scanner, both attenuation and non-corrected datasets were reviewed. FINDINGS: DISTRIBUTION: The maximum perfused segment at stress is in the septal wall. PERFUSION STUDY: The pattern of perfusion at stress is within normal limits. GATED STUDY: There is intact wall motion and thickening without hypokinetic or dyskinetic segments. CONCLUSION: 1. Unremarkable myocardial perfusion scan. RISK CATEGORY: Low (<1% Annual Mortality Rate) Srinivas Couch MD on November 06, 2016 at 10:31 Board Certified Radiologist. This report was verified electronically.
--- NOTE | 2016-11-06 10:49 | HHI.DCPOC ---
Discharge Care Plan Diagnosis: (1) Chest pain (2) Hyperlipidemia Goals to Promote Your Health * To prevent worsening of your condition and complications * To maintain your health at the optimal level Directions to Meet Your Goals Take your medications as prescribed Follow your dietary instruction Follow activity as directed Keep your appointments as scheduled Take your immunizations and boosters as scheduled If your symptoms worsen call your PCP, if no PCP go to Urgent Care Center or Emergency Room Smoking is Dangerous to Your Health. Avoid second hand smoke Call the 24-hour hour crisis hotline for domestic abuse at Charlie Avery Nov 06, 2016 10:49
--- NOTE | 2016-11-06 16:05 | TR ---
Date Performed: 11/06/2016 Time Performed: 09:43:18 DOCTOR: Srinivas Shea DRUG LIST: CLINICAL HISTORY: REASON FOR TEST: CHEST PAIN REASON FOR ENDING: OBSERVATION: CONCLUSION: Lexiscan stress test was performed under standard four minute protocol. Radionuclid e was injected one minute prior to ending the test. No electrocardiographic abormalities were present to suggest ischemia. Nuclear imaging and interpretation are pending. COMMENTS:
== END 2016-11-06 13:42 | disposition home or self-care (01) ==
LOC: NEPC 11:40 → NEDA 13:38 → NEPGCP 15:19
PROVIDERS: ADMIT Internal Medicine Interventional Cardiology; ATTEND Internal Medicine Interventional Cardiology
DX: R07.9 Chest pain, unspecified (principal); R94.31 Abnormal electrocardiogram [ECG] [EKG]; I10 Essential (primary) hypertension; E78.5 Hyperlipidemia, unspecified; H91.90 Unspecified hearing loss, unspecified ear; Z82.49 Family history of ischemic heart disease and other diseases of the circulatory system
CPT/HCPCS: 71010; 78452; 80048; 82550; 82948; 83735; 84484; 85025; 85610; 85730; 93005; 93017; 96374; 96375; 96376; 99285; A9502; G0378; J2270; J2405; J2785

== ENCOUNTER 2017-02-05 19:22 | Emergency (ER) | payer OTHER ==
[~2017-02-05] VITALS: Ht 152.4 cm; Wt 68.0 kg
[~2017-02-05 19:22] MED LIST changes: -MECL25 PO; -METH750T2 PO; +TIMO0.5S30 EACH EYE; -TYLE3 PO
[2017-02-05 19:55] VITALS: BP 158/69; PULSE 84; RESP 20; TEMP 99.5; O2SAT 96
[2017-02-05] MEDS ORDERED: SODIUM CHLOR 0.9% 1000 ML INJ 1,000 ML IV SCH (20:08)
[2017-02-05] MEDS ORDERED: SODIUM CHLORIDE 0.9% FLUSH 10 ML FLUSH IV FLUSH PRN (20:15)
[2017-02-05] MEDS ORDERED: SODIUM CHLOR 0.9% 1000 ML INJ 1,000 ML IV ONE (20:15)
[2017-02-05] MEDS ORDERED: ACETAMINOPHEN 500 MG CPLT PO ONE (20:15)
[2017-02-05] MEDS ORDERED: ONDANSETRON HCL 4 MG/2 ML VIAL IVP ONE (20:15)
[2017-02-05] MEDS ORDERED: FAMOTIDINE 20 MG/2 ML VIAL IV PUSH ONE (20:15)
--- NOTE | 2017-02-05 20:15 | PD ---
HPI Chief Complaint: Cold / Flu Symptoms Time Seen by Provider: 20:01 Travel History International Travel<30 days: No Contact w/Intl Traveler<30days: No Traveled to known affect area: No History of Present Illness HPI Patient is a 77-year-old female who presents to emergency room for IV hydration. Patient reports that for the past 3 days, she has been having myalgias, reports that she has had headaches with fevers and chills. Patient reports that she has had a nonproductive cough, congestion, reports that she did receive a flu vaccine this year. Patient reports that she went to an urgent care one hour prior to arrival to the emergency room and was diagnosed with influenza type A. Patient was told to come to the emergency room for IV hydration as she has not been able tolerate any fluids or anything by mouth for the past 3 days. Patient reports no abdominal pain, reports just abdominal cramping from vomiting so much. Patient with no chest pain or shortness of breath. Patient denies any sick contacts, reports that "I just feel miserable. " PFSH Past Medical History Arthritis: Yes Cardiovascular Problems: Yes High Cholesterol: Yes (control with diet) Diminished Hearing: Yes (50% HEARING) Gastrointestinal Disorders: Yes Genitourinary: Yes Hypertension: Yes Musculoskeletal: Yes Neurologic: No Reproductive: No Respiratory: No ?: Not Past Surgical History Abdominal Surgery: Yes (GALL BLADDER REMOVED) Cholecystectomy: Yes Gynecologic Surgery: Yes (HYSTERECTOMY) Hysterectomy: Yes Tonsillectomy: Yes Other Surgery: Yes Social History Alcohol Use: No Tobacco Use: No Substance Use: No Allergies-Medications (Allergen,Severity, Reaction): Coded Allergies: ibuprofen (Unverified Allergy, Severe, CHEST HEAVINESS, 11/05/16) Reported Meds & Prescriptions Reported Meds & Active Scripts Active Keflex (Cephalexin) 500 Mg Cap 500 Mg PO Q6H 5 Days Zofran (Ondansetron HCl) 4 Mg Tab 4 Mg PO Q6HR PRN Reported Timolol Opth Drops 0.5 % Soln 1 Drop EACH EYE BID Review of Systems General / Constitutional: Positive: Fever, Chills Eyes: No: Drainage, Visual changes HENT: Positive: Headaches, No: Neck Stiffness, Neck Pain Cardiovascular: No: Chest Pain or Discomfort Respiratory: Positive: Cough, No: Shortness of Breath Gastrointestinal: Positive: Nausea, Vomiting, Loss of Appetite, No: Diarrhea, Abdominal Pain, Constipation Genitourinary: No: Dysuria Musculoskeletal: No: Pain Skin: No Rash Neurologic: Positive: Headache, No: Weakness Psychiatric: No: Depression Endocrine: No: Polydipsia Hematologic/Lymphatic: No: Easy Bruising Physical Exam Narrative GENERAL: Moderate distress SKIN: Focused skin assessment warm/dry. HEAD: Atraumatic. Normocephalic. EYES: Pupils equal and round. No scleral icterus. No injection or drainage. ENT: No nasal bleeding or discharge. Mucous membranes pink and tachy. NECK: Trachea midline. No JVD. No meningismus, no nuchal rigidity, negative Kernig's and Brudzinski sign CARDIOVASCULAR: Regular rate and rhythm. No murmur appreciated. RESPIRATORY: No accessory muscle use. Clear to auscultation. Breath sounds equal bilaterally. GASTROINTESTINAL: Abdomen soft, non-tender, nondistended. MUSCULOSKELETAL: No obvious deformities. No clubbing. No cyanosis. No edema. NEUROLOGICAL: Awake and alert. No obvious cranial nerve deficits. Motor grossly within normal limits. Normal speech. PSYCHIATRIC: Appropriate mood and affect; insight and judgment normal. Data Data Last Documented VS Vital Signs Date Time Temp Pulse Resp B/P (MAP) Pulse Ox O2 Delivery O2 Flow Rate FiO2 02/05/17 22:26 83 16 138/75 (96) 96 Room Air 02/05/17 19:55 99.5 Orders Orders Basic Metabolic Panel (Bmp) (02/05/17 20:08) Complete Blood Count With Diff (02/05/17 20:08) Urinalysis - C+S If Indicated (02/05/17 20:08) Iv Access Insert/Monitor (02/05/17 20:08) Ecg Monitoring (02/05/17 20:08) Oximetry (02/05/17 20:08) Ondansetron Inj (Zofran Inj) (02/05/17 20:15) Sodium Chlor 0.9% 1000 Ml Inj (Ns 1000 M (02/05/17 20:08) Sodium Chloride 0.9% Flush (Ns Flush) (02/05/17 20:15) Famotidine Inj (Pepcid Inj) (02/05/17 20:15) Sodium Chlor 0.9% 1000 Ml Inj (Ns 1000 M (02/05/17 20:15) Acetaminophen (Tylenol) (02/05/17 20:15) Chest, Single Ap (02/05/17 21:11) Cath For Specimen (02/05/17 22:31) Urine Culture (02/05/17 22:43) Ceftriaxone Inj (Rocephin Inj) (02/05/17 23:00) Labs Laboratory Tests Test 02/05/17 20:29 02/05/17 22:43 White Blood Count 7.4 TH/MM3 Red Blood Count 5.11 MIL/MM3 Hemoglobin 12.7 GM/DL Hematocrit 39.1 % Mean Corpuscular Volume 76.5 FL Mean Corpuscular Hemoglobin 24.9 PG Mean Corpuscular Hemoglobin Concent 32.5 % Red Cell Distribution Width 13.8 % Platelet Count 221 TH/MM3 Mean Platelet Volume 8.8 FL Neutrophils (%) (Auto) 77.6 % Lymphocytes (%) (Auto) 8.3 % Monocytes (%) (Auto) 13.4 % Eosinophils (%) (Auto) 0.1 % Basophils (%) (Auto) 0.6 % Neutrophils # (Auto) 5.8 TH/MM3 Lymphocytes # (Auto) 0.6 TH/MM3 Monocytes # (Auto) 1.0 TH/MM3 Eosinophils # (Auto) 0.0 TH/MM3 Basophils # (Auto) 0.0 TH/MM3 CBC Comment AUTO DIFF Differential Comment AUTO DIFF CONFIRMED Ovalocytes 1+ Blood Urea Nitrogen 21 MG/DL Creatinine 0.96 MG/DL Random Glucose 123 MG/DL Calcium Level 9.1 MG/DL Sodium Level 136 MEQ/L Potassium Level 3.6 MEQ/L Chloride Level 102 MEQ/L Carbon Dioxide Level 26.2 MEQ/L Anion Gap 8 MEQ/L Estimat Glomerular Filtration Rate 57 ML/MIN Urine Color YELLOW Urine Turbidity HAZY Urine pH 5.5 Urine Specific [place] 1.023 Urine Protein 30 mg/dL Urine Glucose (UA) NEG mg/dL Urine Ketones NEG mg/dL Urine Occult Blood MOD Urine Nitrite NEG Urine Bilirubin NEG Urine Leukocyte Esterase SMALL Urine RBC 4-9 /hpf Urine WBC 25-49 /hpf Urine Squamous Epithelial Cells 0-5 /hpf Urine Renal Epithelial Cells 0-5 /hpf Urine Bacteria FEW /hpf Urine Mucus FEW /lpf Microscopic Urinalysis Comment CULTURE INDICATED MDM Medical Decision Making Medical Screen Exam Complete: Yes Emergency Medical Condition: Yes Medical Record Reviewed: Yes Interpretation(s) Vital Signs Date Time Temp Pulse Resp B/P (MAP) Pulse Ox O2 Delivery O2 Flow Rate FiO2 02/05/17 19:55 99.5 84 20 158/69 (98) 96 Differential Diagnosis Influenza, electrolyte abnormality Narrative Course Patient is a 77-year-old female who was diagnosed with influenza types A today at an urgent care center 1 hour prior to presentation to the emergency room, presents to emergency room for IV hydration as she has had nausea and vomiting for the past 3 days. Patient reports that she has been having myalgias, fever, chills, headache, reports that she is achy all over. Patient unable to keep down any fluids or food for the past 3 days. During the course of the patients emergency department visit, the patients history, examination, and differential diagnosis were reviewed with the patient. The patient was placed on a air sampling and monitoring with oximetry and frequent blood pressure monitoring. The patient had an IV access obtained and blood work sent for analysis. The patient was initially provided IVF, acetaminophen as well as zofran and pepcid. The patients laboratory studies were reviewed and remarkable for: Laboratory Tests Test 02/05/17 20:29 02/05/17 22:43 White Blood Count 7.4 TH/MM3 (4.0-11.0) Red Blood Count 5.11 MIL/MM3 (4.00-5.30) Hemoglobin 12.7 GM/DL (11.6-15.3) Hematocrit 39.1 % (35.0-46.0) Mean Corpuscular Volume 76.5 FL (80.0-100.0) Mean Corpuscular Hemoglobin 24.9 PG (27.0-34.0) Mean Corpuscular Hemoglobin Concent 32.5 % (32.0-36.0) Red Cell Distribution Width 13.8 % (11.6-17.2) Platelet Count 221 TH/MM3 (150-450) Mean Platelet Volume 8.8 FL (7.0-11.0) Neutrophils (%) (Auto) 77.6 % (16.0-70.0) Lymphocytes (%) (Auto) 8.3 % (9.0-44.0) Monocytes (%) (Auto) 13.4 % (0.0-8.0) Eosinophils (%) (Auto) 0.1 % (0.0-4.0) Basophils (%) (Auto) 0.6 % (0.0-2.0) Neutrophils # (Auto) 5.8 TH/MM3 (1.8-7.7) Lymphocytes # (Auto) 0.6 TH/MM3 (1.0-4.8) Monocytes # (Auto) 1.0 TH/MM3 (0-0.9) Eosinophils # (Auto) 0.0 TH/MM3 (0-0.4) Basophils # (Auto) 0.0 TH/MM3 (0-0.2) CBC Comment AUTO DIFF Differential Comment AUTO DIFF CONFIRMED Ovalocytes 1+ (NORMAL) Blood Urea Nitrogen 21 MG/DL (7-18) Creatinine 0.96 MG/DL (0.50-1.00) Random Glucose 123 MG/DL (74-106) Calcium Level 9.1 MG/DL (8.5-10.1) Sodium Level 136 MEQ/L (136-145) Potassium Level 3.6 MEQ/L (3.5-5.1) Chloride Level 102 MEQ/L (98-107) Carbon Dioxide Level 26.2 MEQ/L (21.0-32.0) Anion Gap 8 MEQ/L (5-15) Estimat Glomerular Filtration Rate 57 ML/MIN (>89) Radiology studies were reviewed and remarkable for: Last Impressions Chest X-Ray 02/05/172110 Signed Impressions: Service Date/Time: Friday, February 05, 2017 21:28 - CONCLUSION: 1. No acute abnormality or significant interval change. Michael Barrera MD Lab work reviewed, patient is feeling much better after IV hydration. Patient is able to tolerate oral fluids at this time. Plan to discharge patient to home with instructions to drink plenty of fluids. She will follow-up with a primary care doctor and will return to emergency room as needed. UA is positive for 25-49 white blood cells, small leuk esterase, few bacteria, urine culture was sent. Patient was given a dose of IV Rocephin, will be discharged home with Keflex. She will follow up with cultures from today. Diagnosis Primary Impression: Influenza A Additional Impressions: Nausea & vomiting Qualified Codes: R11.2 - Nausea with vomiting, unspecified UTI (urinary tract infection) Qualified Codes: N30.00 - Acute cystitis without hematuria Patient Instructions: General Instructions Additional Instructions: Please drink plenty of fluids, take Tylenol for fevers Please follow up with your primary care doctor in 2-3 days Return to the ER if symptoms worsen or progress Return to the ER as needed Med/Other Pt SpecificInfo: Prescription(s) given Scripts Cephalexin (Keflex) 500 Mg Cap 500 MG PO Q6H for Infection for 5 Days, #20 CAP 0 Refills Prov: Sushila Moran DO 02/05/17 Ondansetron (Zofran) 4 Mg Tab 4 MG PO Q6HR Y for NAUSEA OR VOMITING, #20 TAB 0 Refills Prov: Sushila Moran DO 02/05/17 Disposition: 01 DISCHARGE HOME Condition: Stable Sushila Moran DO Feb 05, 2017 20:15
[2017-02-05 20:33] LABS: AUTOMATED NEUTROPHIL # 5.8 TH/MM3 (1.8-7.7); BASOPHIL % 0.6 % (0.0-2.0); EOSINOPHIL % 0.1 % (0.0-4.0); HEMATOCRIT 39.1 % (35.0-46.0); HEMOGLOBIN 12.7 GM/DL (11.6-15.3); LYMPH % 8.3 % (9.0-44.0); LYMPHOCYTE # 0.6 TH/MM3 (1.0-4.8); MEAN CELL VOLUME 76.5 FL (80.0-100.0); MEAN CORPUSCULAR HEMOGLOBIN 24.9 PG (27.0-34.0); MEAN CORPUSCULAR HGB CONC 32.5 % (32.0-36.0); MEAN PLATELET VOLUME 8.8 FL (7.0-11.0); MONO % 13.4 % (0.0-8.0); NEUT % 77.6 % (16.0-70.0); PLATELET COUNT 221 TH/MM3 (150-450); RED BLOOD COUNT 5.11 MIL/MM3 (4.00-5.30); RED CELL DISTRIBUTION WIDTH 13.8 % (11.6-17.2); WHITE BLOOD COUNT 7.4 TH/MM3 (4.0-11.0)
[2017-02-05 20:42] VITALS: O2SAT 98
[2017-02-05 20:43] LABS: CALCIUM 9.1 MG/DL (8.5-10.1)
[2017-02-05 20:44] LABS: BICARBONATE 26.2 MEQ/L (21.0-32.0)
[2017-02-05 20:47] LABS: CREATININE 0.96 MG/DL (0.50-1.00)
[2017-02-05 20:57] LABS: OVALOCYTES 1+ (NORMAL)
--- NOTE | 2017-02-05 21:54 | RADRPT ---
EXAM DATE/TIME: 02/05/2017 21:28 [facility] COMPARISON: CHEST SINGLE AP, November 05, 2016, 12:58. INDICATIONS : Cough and fever. MEDICAL HISTORY : Hypercholesterolemia. Hypertension. SURGICAL HISTORY : Hysterectomy. Cholecystectomy. Tonsillectomy. ENCOUNTER: Initial ACUITY: 1 day PAIN SCORE: 0/10 LOCATION: Bilateral chest FINDINGS: Mild diffuse interstitial prominence similar to prior exams. No new focal pleural or parenchymal opac ities. Cardiomediastinal contours are within normal limits. Bony thorax is intact. CONCLUSION: 1. No acute abnormality or significant interval change. Michael Barrera MD on February 05, 2017 at 21:52 Board Certified Radiologist. This report was verified electronically.
[2017-02-05 22:26] VITALS: BP 138/75; PULSE 83; RESP 16; O2SAT 96
[2017-02-05 22:46] LABS: BILIRUBIN, URINE NEG (NEG); BLOOD, URINE MOD (NEG); GLUCOSE,URINE NEG (NEG); KETONE, URINE NEG (NEG); NITRITE,URINE NEG (NEG); PH, URINE 5.5 (5.0-8.5); URINE LEUKOCYTE ESTERASE SMALL (NEG)
[2017-02-05] MEDS ORDERED: ZOFR4TAB PO (22:47)
[2017-02-05 22:51] LABS: MUCUS URINE FEW /lpf (OCC); URINE COLOR YELLOW (YELLW/STRAW)
[2017-02-05 22:52] LABS: BACTERIA, URINE FEW /hpf; RENAL EPITHELIAL CELLS 0-5 /hpf; SQUAMOUS EPITHELIAL CELL URINE 0-5 /hpf (0-5)
[2017-02-05] MEDS ORDERED: CEPH-460 PO (22:57)
[2017-02-05] MEDS ORDERED: cefTRIAXone INJ 1,000 MG in SODIUM CHLORIDE 0.9% INJ 100 ML IV ONE (23:00)
[2017-02-05 23:25] VITALS: BP 135/63; PULSE 60; RESP 16; TEMP 98.9; O2SAT 98
== END 2017-02-05 23:53 | disposition home or self-care (01) ==
LOC: PHED 19:22
DX: J09.X2 Influenza due to identified novel influenza A virus with other respiratory manifestations (principal); R11.2 Nausea with vomiting, unspecified; N39.0 Urinary tract infection, site not specified; B96.89 Other specified bacterial agents as the cause of diseases classified elsewhere; R51 Headache; E78.00 Pure hypercholesterolemia, unspecified; I10 Essential (primary) hypertension; Z79.899 Other long term (current) drug therapy; Z88.6 Allergy status to analgesic agent
CPT/HCPCS: 71010; 80048; 81001; 85025; 87086; 96361; 96365; 96375; 99284; J0696; J2405; J7030

== ENCOUNTER 2017-11-11 11:59 | Observation (INO) ==
--- NOTE | 2017-11-11 12:46 | ED ---
HPI General Chief Complaint: Nausea/Vomiting/Diarrhea Stated Complaint: n/v x2 days Time Seen by Provider: 11/11/17 12:18 Source: patient History of Present Illness HPI Narrative: 77-year-old female with a past medical history hypertension presents to the emergency room complaining of spinning sensation worse with her eyes open and moving her head [id number]. Symptoms are associated with nausea , vomiting and dizziness. Patient had symptoms with moderate to severe intensity for the last couple days. She had a previous episode of vertigo years ago. She denies any chest pain, shortness of breath, fever, chills, nuchal rigidity or focal deficits. Related Data Home Medications Medication Instructions Recorded Confirmed timolol 1 drp OPHTHALMIC (EYE) BID 11/11/17 11/11/17 Allergies Allergy/AdvReac Type Severity Reaction Status Date / Time ibuprofen Allergy Severe CHEST Verified 11/11/17 12:36 HEAVINESS Review of Systems Constitutional Denies fever(s) Eyes Denies change in vision ENT Reports vertigo and Reports dizziness Cardiovascular Denies chest pain Respiratory Denies dyspnea Gastrointestinal Reports nausea and Reports vomiting Genitourinary Denies difficulty voiding Musculoskeletal Denies myalgias Integumentary/Breasts Denies rash Neurologic Reports vertigo and Reports dizziness Psychiatric Denies depression Endocrine Denies polyuria Hematologic/Lymphatic Denies easy bruising PMFSH Medical History Medical History Absolute glaucoma of both eyes (Acute) History of hysterectomy (Acute) Hypoglycemia (Acute) Surgical History Surgical History History of cholecystectomy (Acute) Family History Family History Other Osteoarthritis Social History Social History Substance History: No History of Abuse Second Hand Smoke Exposure: No Smoking Status: Never smoker How Often Do You Have a Drink Containing Alcohol: Never Recent Travel in [facility] within the Last 8 Weeks: No Immunization History Tetanus Immunization: <5 Years Hx Influenza Vaccine This Season: Yes Exam Narrative Exam Narrative: GENERAL: Patient is alert and oriented -3 SKIN: Focused skin assessment warm/dry. HEAD: Atraumatic. Normocephalic. EYES: Pupils equal and round. No scleral icterus. No injection or drainage. ENT: No nasal bleeding or discharge. Mucous membranes pink and moist. NECK: Trachea midline. No JVD. CARDIOVASCULAR: Regular rate and rhythm. No murmur appreciated. RESPIRATORY: No accessory muscle use. Clear to auscultation. Breath sounds equal bilaterally. GASTROINTESTINAL: Abdomen soft, non-tender, nondistended. Hepatic and splenic margins not palpable. MUSCULOSKELETAL: No obvious deformities. No clubbing. No cyanosis. No edema. NEUROLOGICAL: Awake and alert. No obvious cranial nerve deficits. Motor grossly within normal limits. Normal speech. PSYCHIATRIC: Appropriate mood and affect; insight and judgment normal. Course Reevaluation(s) Reevaluation #1: Patient continues to be dizzy, nauseous, with intractable vomiting despite treatment several times with antiemetics and meclizine. Time: 14:20 Initial Documented Vital Signs Temperature 97 F L 11/11/17 12:01 Pulse Rate 94 H 11/11/17 12:01 Blood Pressure 163/78 H 11/11/17 12:01 Pulse Oximetry 98 11/11/17 12:01 Last Documented Vital Signs Temperature 97.6 F 11/11/17 16:00 Pulse Rate 97 H 11/11/17 16:00 Respiratory Rate 21 11/11/17 16:00 Blood Pressure 172/79 H 11/11/17 16:00 Pulse Oximetry 95 11/11/17 16:00 Medical Decision Making [facility] Narrative Medical Screen Exam Complete: Yes Emergency Medical Condition: Yes Lab Data Result diagrams: 11/11/17 12:41 11/11/17 12:41 Lab Results 11/11/17 11/11/17 11/11/17 Range/Units 12:34 12:41 12:41 CBC w Diff Auto diff final WBC 9.9 (4.0-11.0) th/mm3 RBC 5.38 H (4.00-5.30) mil/mm3 Hgb 13.9 (11.6-15.3) gm/dL Hct 43.0 (35.0-46.0) % MCV 80.0 (80.0-100.0) fL MCH 26.0 L (27.0-34.0) pg MCHC 32.4 (32.0-36.0) % RDW 13.7 (11.6-17.2) % Plt Count 306 (150-450) th/mm3 MPV 9.2 (7.0-11.0) fL Neut % (Auto) 82.3 H (16.0-70.0) % Lymph % (Auto) 14.7 (9.0-44.0) % [place] % (Auto) 1.9 (0.0-8.0) % Eos % (Auto) 0.1 (0.0-4.0) % Baso % (Auto) 1.0 (0.0-2.0) % Neut # (Auto) 8.1 H (1.8-7.7) th/mm3 Lymph # (Auto) 1.5 (1.0-4.8) th/mm3 [place] # (Auto) 0.2 (0.0-0.9) th/mm3 Eos # (Auto) 0.0 (0.0-0.4) th/mm3 Baso # (Auto) 0.1 (0.0-0.2) th/mm3 WBC Differential . Differential Comment . Sodium 139 (136-145) meq/L Potassium 3.7 (3.5-5.1) meq/L Chloride 103 (98-107) meq/L Carbon Dioxide 26.0 (21.0-32.0) meq/L Anion Gap 10 (5-15) meq/L BUN 16 (7-18) mg/dL Creatinine 0.92 (0.50-1.00) mg/dL Estimated GFR 59 L (>89) mL/min POC Glucose 124 H (68-110) mg/dl Random Glucose 132 H (74-106) mg/dL Calcium 9.3 (8.5-10.1) mg/dL Total Bilirubin 0.6 (0.2-1.0) mg/dL AST 16 (15-37) U/L ALT 25 (10-53) U/L Alkaline Phosphatase 92 (45-117) U/L Total Protein 8.2 (6.4-8.2) g/dL Albumin 4.2 (3.4-5.0) g/dL Imaging Data Radiologist's impression: Head CT 11/11/17 12:33 CONCLUSION: 1. Mild periventricular and subcortical white matter small vessel ischemic changes bilaterally. 2. No acute infarct, acute hemorrhage, midline shift or extra-axial fluid collections. . Discharge Plan Discharge Disposition Patient Disposition: 30 Still Patient Discharge Condition Condition: Fair Discharge Details Discharge Comment: Case has been discussed with Dr. Gallardo who accepted the admission to inpatient for observation. Diagnosis: Intractable vomiting, Vertigo Physicians Team ED Provider: Edgar Travis Primary Care Provider: Hira Justin Attending Provider: Ezio Gallardo Discharge Interventions Interventions: ED Discharge Assessment Last Done: 11/11/17 15:48 Status ED Status: Left Department Discharge Information Discharge Date/Time: 11/11/17 15:48
[2017-11-11 12:50] LABS: Baso # (Auto) 0.1 th/mm3 (0.0-0.2); Eos % (Auto) 0.1 % (0.0-4.0); Hemoglobin 13.9 gm/dL (11.6-15.3); Lymph # (Auto) 1.5 th/mm3 (1.0-4.8); Lymph % (Auto) 14.7 % (9.0-44.0); Mean Corpuscular HGB Conc 32.4 % (32.0-36.0); Mean Platelet Volume 9.2 fL (7.0-11.0); Mono # (Auto) 0.2 th/mm3 (0.0-0.9); Mono % (Auto) 1.9 % (0.0-8.0); Neut # (Auto) 8.1 th/mm3 (1.8-7.7); Neut % (Auto) 82.3 % (16.0-70.0); Platelet Count 306 th/mm3 (150-450); Red Blood Count 5.38 mil/mm3 (4.00-5.30); Red Cell Distribution Width 13.7 % (11.6-17.2); White Blood Count 9.9 th/mm3 (4.0-11.0)
[2017-11-11 12:58] LABS: Chloride 103 meq/L (98-107); Potassium 3.7 meq/L (3.5-5.1); Sodium 139 meq/L (136-145)
[2017-11-11] MEDS ORDERED: Sodium Chlor 0.9% Inj 500 ML IV.SIG SCH (13:00)
[2017-11-11 13:01] LABS: Albumin 4.2 g/dL (3.4-5.0); Anion Gap 10 meq/L (5-15); Blood Urea Nitrogen 16 mg/dL (7-18); Calcium 9.3 mg/dL (8.5-10.1); Glucose,Random 132 mg/dL (74-106)
[2017-11-11 13:04] LABS: Alanine Aminotransferase 25 U/L (10-53); Aspartate Aminotransferase 16 U/L (15-37); Glomerular Filtration Rate 59 mL/min (>89)
[2017-11-11 13:06] LABS: Total Protein 8.2 g/dL (6.4-8.2)
[2017-11-11 13:07] LABS: Alkaline Phosphatase 92 U/L (45-117)
--- NOTE | 2017-11-11 13:24 | CT ---
EXAM DATE: 11/11/2017 1:16 PM EDT AGE/SEX: 77 years / Female INDICATIONS: Dizziness. CLINICAL DATA: This is the patient's initial encounter. Patient reports that signs and symptoms have been present for 1 week and indicates a pain score of 0/10. MEDICAL/SURGICAL HISTORY: None. Hysterectomy. Cholecystectomy. RADIATION DOSE: 56.56 CTDI (mGy) [place] [facility] [place] [facility] [place]18/2012. . TECHNIQUE: CT of the head without contrast. Using automated exposure control and adjustment of the mA and/or kV according to patient size, radiation dose was kept as low as reasonably achievable to ob tain optimal diagnostic quality images. DICOM format image data is available electronically for revi ew and comparison. FINDINGS: Cerebrum: The ventricles are normal for age. No evidence of midline shift, mass lesion, hemorrhage or acute infarction. No extraaxial fluid collections are seen. Mild periventricular and subcortical white matter small vessel ischemic changes are noted bilaterally. Posterior Fossa: The cerebellum and brainstem are intact. The 4th ventricle is midline. The cerebe llopontine angle is unremarkable. Extracranial: The visualized portion of the orbits is intact. Skull: The calvaria is intact. No evidence of skull fracture. CONCLUSION: 1. Mild periventricular and subcortical white matter small vessel ischemic changes bilaterally. 2. No acute infarct, acute hemorrhage, midline shift or extra-axial fluid collections. . Electronically signed by: Stephen Salas MD 11/11/2017 1:22 PM EDT
[2017-11-11] MEDS ORDERED: Metoclopramide Inj 10 MG in Sodium Chlor 0.9% Inj 50 ML IV.SIG ONE (13:59)
[2017-11-11] MEDS: Sod Chloride 0.9% Inj 1,000 ML IV.CONT SCH ×2 (14:30→23:32)
--- NOTE | 2017-11-11 16:10 | P.HPIM ---
History of Present Illness Primary Care Physician: Hira Justin MD History of Present Illness: Mrs. Raymond is a 77-year-old female. She came into the hospital today secondary to hyperemesis. She also has been having vertigo and difficulty walking, she cannot ambulate at all actually. She is a high fall risk at this point. She says that she had an onset of dizziness earlier today. Vomiting started after the dizziness is likely related to motion sickness. Patient has improvement in her symptoms with closing her eyes and laying still and worsening of her symptoms with movement of her head. Etiology is likely benign prostatic hypertrophy. No other complaints. No fevers. - Diagnosis (1) Hyperemesis (2) Severe vertigo (3) Unable to ambulate Review of Systems Constitutional: No fevers, no chills no night sweats, no fatigue, no weakness Eyes: No eye pain, no blurry vision, no loss of vision ENT: No sore throat, no ear pain, no rhinorrhea Cardiovascular: No chest pain, no tachycardia, no palpitations, no shortness of breath, no syncope Respiratory: No wheezing, no cough, no shortness of breath Gastrointestinal: No abdominal pain, no black tarry stools, no bright red blood per rectum, vomiting, no diarrhea Musculoskeletal: No joint pain, no muscle cramps, no stiffness Integumentary: No rash, no ulcers, no drainage Neurologic: No sensory loss, no loss of motor function, dizziness Psychiatric: No behavioral changes, no hallucinations, no suicidal ideations PMF - History History Provided By: Patient, Family Member - Medical History Medical History: Medical History (Last Reviewed 11/11/17 @ 12:45 by Edgar Travis) Absolute glaucoma of both eyes History of hysterectomy Hypoglycemia - Surgical History Surgical History: Surgical History (Last Reviewed 11/11/17 @ 12:45 by Edgar Travis) History of cholecystectomy - Family History Family History: Family History (Last Updated 11/11/17 @ 16:05 by Ezio Gallardo MD) Other Osteoarthritis - Tobacco History Smoking Status: Never smoker - Alcohol History How Often Do You Have a Drink Containing Alcohol: Never - Substance Use History Substance History: No History of Abuse - Travel History Recent Travel in the [facility] Within the Last 8 Weeks: No - Immunization History Tetanus Immunization: <5 Years Hx Influenza Vaccine This Season: Yes Medications and Allergies Active Medications: Active Medications Al Hydroxide/Mg Hydroxide (Milk Of Hollie Villalobos) 30 ml PO Q12H PRN PRN Reason: Mild Constipation Sodium Chloride (Ns Inj) 500 mls @ 0 mls/hr IV.SIG BOLUS CIRO Last Infusion: 11/11/17 13:07 Dose: Infused Sodium Chloride (Ns Inj) 1,000 mls @ 100 mls/hr IV.CONT .Q10H CIRO Last Infusion: 11/11/17 15:49 Dose: 100 mls/hr Meclizine HCl (Antivert) 25 mg PO Q6HR CIRO Ondansetron HCl (Zofran Inj) 4 mg IV.PUSH Q6H PRN PRN Reason: NAUSEA OR VOMITING Allergies Allergy/AdvReac Type Severity Reaction Status Date / Time ibuprofen Allergy Severe CHEST Verified 11/11/17 12:36 HEAVINESS Home Medications Medication Instructions Recorded Confirmed Type timolol 1 drp OPHTHALMIC (EYE) BID 11/11/17 11/11/17 History Exam Vital signs: Vital Signs 11/11/17 12:01 11/11/17 13:08 11/11/17 15:16 Temperature 97 F L Pulse Rate 94 H 84 87 Respiratory Rate 18 18 Blood Pressure 163/78 H 164/74 H 147/74 H Pulse Oximetry 98 100 Intake & Output 11/10/17 11/11/17 11/11/17 18:59 06:59 18:59 Intake Total 652 / 652 Balance 652 / 652 Weight 60 kg Intake: IV 652 / 652 NS Inj 1,000 ML @ 100 mls/hr IV 100 / 100 .CONT .Q10H CIRO Rx#:[id number] Reglan Inj 10 MG In NS Inj 50 52 / 52 ML @ 104 mls/hr IV.SIG ONCE ONE Rx#:[id number] NS Inj 500 ML @ Wide Open IV. 500 / 500 SIG BOLUS CIRO Rx#:[id number] Narrative: GENERAL: NAD, A&Ox3 HEAD: Normocephalic. NECK: Supple, trachea midline. No lymphadenopathy. No carotid bruits. EYES: No scleral icterus. No injection or drainage. CARDIOVASCULAR: Regular rate and rhythm without murmurs, gallops, or rubs. RESPIRATORY: Breath sounds equal bilaterally. No accessory muscle use. GASTROINTESTINAL: Abdomen soft, non-tender, nondistended. MUSCULOSKELETAL: No cyanosis, or edema. SKIN: Warm and dry. NEURO: No focal neurological deficits. Results - Labs CBC & Chem 7: 11/11/17 12:41 11/11/17 12:41 Labs: Short CBC 11/11/17 Range/Units 12:41 WBC 9.9 (4.0-11.0) th/mm3 Hgb 13.9 (11.6-15.3) gm/dL Hct 43.0 (35.0-46.0) % Plt Count 306 (150-450) th/mm3 BMP 11/11/17 12:41 Sodium 139 Potassium 3.7 Chloride 103 Carbon Dioxide 26.0 BUN 16 Creatinine 0.92 Calcium 9.3 Liver Function 11/11/17 Range/Units 12:41 Total Bilirubin 0.6 (0.2-1.0) mg/dL AST 16 (15-37) U/L ALT 25 (10-53) U/L Alkaline Phosphatase 92 (45-117) U/L Albumin 4.2 (3.4-5.0) g/dL - Imaging Impressions Head CT 11/11/17 12:33 CONCLUSION: 1. Mild periventricular and subcortical white matter small vessel ischemic changes bilaterally. 2. No acute infarct, acute hemorrhage, midline shift or extra-axial fluid collections. . Caprini VTE Risk Assessment Caprini VTE Risk Assessment: No/Low Risk (score <= 1) Caprini Risk Assessment Model: Point Value = 1 Point Value = 2 Point Value = 3 Point Value = 5 Age 41-60 Minor surgery BMI > 25 kg/m2 Swollen legs Varicose veins or History of unexplained or recurrent spontaneous Oral contraceptives or hormone replacement Sepsis (< 1 month) Serious lung disease, including pneumonia (< 1 month) Abnormal pulmonary function Acute myocardial infarction Congestive heart failure (< 1 month) History of inflammatory bowel disease Medical patient at bed rest Age 61-74 Arthroscopic surgery Major open surgery (> 45 min) Laparoscopic surgery (> 45 min) Malignancy Confined to bed (> 72 hours) Immobilizing plaster cast Central venous access Age >= 75 History of VTE Family history of VTE Factor V Leiden Prothrombin [id number] Lupus anticoagulant Anticardiolipin antibodies Elevated serum homocysteine Heparin-induced thrombocytopenia Other congenital or acquired thrombophilia Stroke (< 1 month) Elective arthroplasty Hip, pelvis, or leg fracture Acute spinal cord injury (< 1 month) Prophylaxis Regimen: Total Risk Factor Score Risk Level Prophylaxis Regimen 0-1 Low Early ambulation 2 Moderate Order ONE of the following: *Sequential Compression Device (SCD) *Heparin 5000 units SQ BID 3-4 Higher Order ONE of the following medications: *Heparin 5000 units SQ TID *Enoxaparin/Lovenox 40 mg SQ daily (WT < 150 kg, CrCl > 30 mL/min) *Enoxaparin/Lovenox 30 mg SQ daily (WT < 150 kg, CrCl > 10-29 mL/min) *Enoxaparin/Lovenox 30 mg SQ BID (WT < 150 kg, CrCl > 30 mL/min) AND/OR *Sequential Compression Device (SCD) 5 or more Highest Order ONE of the following medications: *Heparin 5000 units SQ TID (Preferred with Epidurals) *Enoxaparin/Lovenox 40 mg SQ daily (WT < 150 kg, CrCl > 30 mL/min) *Enoxaparin/Lovenox 30 mg SQ daily (WT < 150 kg, CrCl > 10-29 mL/min) *Enoxaparin/Lovenox 30 mg SQ BID (WT < 150 kg, CrCl > 30 mL/min) AND *Sequential Compression Device (SCD) Assessment and Plan - Assessment (1) Hyperemesis Code(s): R11.10 - Vomiting, unspecified Status: Acute (2) Severe vertigo Code(s): R42 - Dizziness and giddiness Status: Acute (3) Unable to ambulate Code(s): R26.2 - Difficulty in walking, not elsewhere classified Status: Acute - Plan 77-year-old female admitted secondary to severe vertigo with hyperemesis and inability to ambulate Vertigo Hyperemesis Inability to ambulate Treat vertigo with meclizine As needed Zofran for nausea IV hydration Physical therapy evaluation tomorrow morning Patient will be kept until she is functional for discharge Glaucoma Continue baseline treatments DVT prophylaxis SCDs
--- NOTE | 2017-11-11 20:44 | P.PN ---
Subjective Interval history: NOT SEEN Physical Exam Vital signs: Vital Signs 11/11/17 12:01 11/11/17 13:08 11/11/17 15:16 Temperature 97 F L Pulse Rate 94 H 84 87 Respiratory Rate 18 18 Blood Pressure 163/78 H 164/74 H 147/74 H Pulse Oximetry 98 100 11/11/17 16:00 Temperature 97.6 F Pulse Rate 97 H Respiratory Rate 21 Blood Pressure 172/79 H Pulse Oximetry 95 Intake & Output 11/11/17 11/11/17 11/12/17 06:59 18:59 06:59 Intake Total 652 / 652 Balance 652 / 652 Weight 60 kg Intake: IV 652 / 652 NS Inj 1,000 ML @ 100 mls/hr IV 100 / 100 .CONT .Q10H CIRO Rx#:[id number] Reglan Inj 10 MG In NS Inj 50 52 / 52 ML @ 104 mls/hr IV.SIG ONCE ONE Rx#:[id number] NS Inj 500 ML @ Wide Open IV. 500 / 500 SIG BOLUS CIRO Rx#:[id number] Narrative: GENERAL: NAD, A&Ox3 HEAD: Normocephalic. NECK: Supple, trachea midline. No lymphadenopathy. No carotid bruits. EYES: No scleral icterus. No injection or drainage. CARDIOVASCULAR: Regular rate and rhythm without murmurs, gallops, or rubs. RESPIRATORY: Breath sounds equal bilaterally. No accessory muscle use. GASTROINTESTINAL: Abdomen soft, non-tender, nondistended. MUSCULOSKELETAL: No cyanosis, or edema. SKIN: Warm and dry. NEURO: No focal neurological deficits. Results - Labs CBC & Chem 7: 11/11/17 12:41 11/11/17 12:41 Laboratory Results - last 24 hr 11/11/17 11/11/17 11/11/17 12:34 12:41 12:41 CBC w Diff Auto diff final WBC 9.9 RBC 5.38 H Hgb 13.9 Hct 43.0 MCV 80.0 MCH 26.0 L MCHC 32.4 RDW 13.7 Plt Count 306 MPV 9.2 Neut % (Auto) 82.3 H Lymph % (Auto) 14.7 [place] % (Auto) 1.9 Eos % (Auto) 0.1 Baso % (Auto) 1.0 Neut # (Auto) 8.1 H Lymph # (Auto) 1.5 [place] # (Auto) 0.2 Eos # (Auto) 0.0 Baso # (Auto) 0.1 WBC Differential . Differential Comment . Sodium 139 Potassium 3.7 Chloride 103 Carbon Dioxide 26.0 Anion Gap 10 BUN 16 Creatinine 0.92 Estimated GFR 59 L POC Glucose 124 H Random Glucose 132 H Calcium 9.3 Total Bilirubin 0.6 AST 16 ALT 25 Alkaline Phosphatase 92 Total Protein 8.2 Albumin 4.2 - Imaging Impressions Head CT 11/11/17 12:33 CONCLUSION: 1. Mild periventricular and subcortical white matter small vessel ischemic changes bilaterally. 2. No acute infarct, acute hemorrhage, midline shift or extra-axial fluid collections. . - Procedures none Assessment and Plan - Assessment (1) Hyperemesis Code(s): R11.10 - Vomiting, unspecified Status: Acute (2) Severe vertigo Code(s): R42 - Dizziness and giddiness Status: Acute (3) Unable to ambulate Code(s): R26.2 - Difficulty in walking, not elsewhere classified Status: Acute - Plan 77-year-old female admitted secondary to severe vertigo with hyperemesis and inability to ambulate Vertigo Hyperemesis Inability to ambulate Treat vertigo with meclizine As needed Zofran for nausea IV hydration Physical therapy evaluation tomorrow morning Patient will be kept until she is functional for discharge Fall precautions Glaucoma Continue baseline treatments DVT prophylaxis SCDs
--- NOTE | 2017-11-11 22:18 | ECG ---
Date Performed: 11/11/2017 Time Performed: 12:57:56 PTAGE: 77 years EKG: Sinus rhythm POSSIBLE LEFT ATRIAL ENLARGEMENT BORDERLINE ECG PREVIOUS TRACING : 11/05/2016 18.29 Since the previous tracing, no significant change noted DOCTOR: Lela Almeida Interpretating Date/Time 11/11/2017 22:17:25
[2017-11-11] MEDS: Timolol 0.5% Drops 5 ML Bottle EACH EYE SCH (23:39)
[2017-11-12 08:39] VITALS: BP 143/65; PULSE 64; RESP 17; TEMP 98.1; O2SAT 98
[2017-11-12] MEDS: Sod Chloride 0.9% Inj 1,000 ML IV.CONT SCH (09:27)
[2017-11-12] MEDS: Timolol 0.5% Drops 5 ML Bottle EACH EYE SCH (09:27)
--- NOTE | 2017-11-12 12:05 | P.DCO ---
- Physical Therapy Order: Evaluate and treat, Improve ambulation, Strength and gait training - Case Management Consult Yes - Certification I have seen patient Charlene Raymond on 11/12/17. My clinical findings support the need for the requested home health care services because: Deconditioned with increased weakness I certify that my clinical findings support that this patient is homebound because: Unsteady gait/balance
--- NOTE | 2017-11-12 12:10 | P.PN ---
Subjective Interval history: Follow-up vertigo. She is feeling much better resolved nausea and vertigo ambulated with physical therapy recommends home care. Advised to take scheduled meclizine for 1 more day after resolution of symptoms then as needed. No driving. Physical Exam Vital signs: Vital Signs 11/11/17 13:08 11/11/17 15:16 11/11/17 16:00 Temperature 97.6 F Pulse Rate 84 87 97 H Respiratory Rate 18 18 21 Blood Pressure 164/74 H 147/74 H 172/79 H Pulse Oximetry 100 95 11/11/17 20:00 11/12/17 00:00 11/12/17 08:00 Temperature 98.6 F 97.9 F 98.1 F Pulse Rate 89 72 64 Respiratory Rate 16 16 17 Blood Pressure 157/71 H 145/67 H 143/65 H Pulse Oximetry 97 96 98 Intake & Output 11/11/17 11/12/17 11/12/17 18:59 06:59 18:59 Intake Total 652 / 652 1100 / 1100 1000 / 1000 Balance 652 / 652 1100 / 1100 1000 / 1000 Weight 60 kg 60 kg Intake: IV 652 / 652 900 / 900 1000 / 1000 NS Inj 1,000 ML @ 50 mls/hr IV. 100 / 100 900 / 900 1000 / 1000 CONT .Q20H CIRO Rx#:[id number] Reglan Inj 10 MG In NS Inj 50 52 / 52 ML @ 104 mls/hr IV.SIG ONCE ONE Rx#:[id number] NS Inj 500 ML @ Wide Open IV. 500 / 500 SIG BOLUS CIRO Rx#:[id number] Oral 200 / 200 Other: # Voids 2 Narrative: GENERAL: NAD, A&Ox3 EYES: No scleral icterus. No injection or drainage. No nystagmus CARDIOVASCULAR: Regular rate and rhythm without murmurs, gallops, or rubs. RESPIRATORY: Breath sounds equal bilaterally. No accessory muscle use. GASTROINTESTINAL: Abdomen soft, non-tender, nondistended. MUSCULOSKELETAL: No cyanosis, or edema. SKIN: Warm and dry. NEURO: No focal neurological deficits. Results - Labs CBC & Chem 7: 11/11/17 12:41 11/11/17 12:41 Laboratory Results - last 24 hr 11/11/17 11/11/17 11/11/17 12:34 12:41 12:41 CBC w Diff Auto diff final WBC 9.9 RBC 5.38 H Hgb 13.9 Hct 43.0 MCV 80.0 MCH 26.0 L MCHC 32.4 RDW 13.7 Plt Count 306 MPV 9.2 Neut % (Auto) 82.3 H Lymph % (Auto) 14.7 [place] % (Auto) 1.9 Eos % (Auto) 0.1 Baso % (Auto) 1.0 Neut # (Auto) 8.1 H Lymph # (Auto) 1.5 [place] # (Auto) 0.2 Eos # (Auto) 0.0 Baso # (Auto) 0.1 WBC Differential . Differential Comment . Sodium 139 Potassium 3.7 Chloride 103 Carbon Dioxide 26.0 Anion Gap 10 BUN 16 Creatinine 0.92 Estimated GFR 59 L POC Glucose 124 H Random Glucose 132 H Calcium 9.3 Total Bilirubin 0.6 AST 16 ALT 25 Alkaline Phosphatase 92 Total Protein 8.2 Albumin 4.2 - Imaging Impressions Head CT 11/11/17 12:33 CONCLUSION: 1. Mild periventricular and subcortical white matter small vessel ischemic changes bilaterally. 2. No acute infarct, acute hemorrhage, midline shift or extra-axial fluid collections. . - Procedures none Assessment and Plan - Assessment (1) Hyperemesis Code(s): R11.10 - Vomiting, unspecified Status: Acute (2) Severe vertigo Code(s): R42 - Dizziness and giddiness Status: Acute (3) Unable to ambulate Code(s): R26.2 - Difficulty in walking, not elsewhere classified Status: Acute - Plan 77-year-old female admitted secondary to severe vertigo with hyperemesis and inability to ambulate Vertigo. Resolved Hyperemesis. Resolved Inability to ambulate. Resolved History of vertigo Treat vertigo with meclizine As needed Zofran for nausea Discontinue IV hydration Physical therapy commands home care. No driving Fall precautions Glaucoma Continue baseline treatments DVT prophylaxis SCDs Discharge Planning: Discharge patient to home Condition on discharge: Improved Regular Diet as tolerated Ad Anastasiia activity no driving Rx written: Vertigo Follow-up with primary care physician
== END 2017-11-12 13:45 | disposition home health service (06) ==
LOC: PHEDA 11:59 → PHED 11:59 → PH3 15:37
PROVIDERS: ADMIT Internal Medicine; ATTEND Internal Medicine